=== PATIENT | male | born 1970 | race Caucasian/White ===

== ENCOUNTER 2018-04-04 09:11 | Emergency (ER) | payer OTHER | END 2018-04-04 11:38 | disposition home or self-care (01) | LOC: FTE 09:11 | DX: S10.91XA Abrasion of unspecified part of neck, initial encounter (principal); S50.812A Abrasion of left forearm, initial encounter; V49.40XA Driver injured in collision with unspecified motor vehicles in traffic accident, initial encounter | CPT/HCPCS: 99283 ==